=== PATIENT | male | born 1965 | race Caucasian/White ===

== ENCOUNTER → 2016-04-28 | Day surgery (SDC) | payer OTHER ==
[~2016-04-28] VITALS: Ht 172.7 cm; Wt 62.6 kg
[~2016-04-28] MED LIST: BUSPIRONE10 MG PO; CLARITIN-D 10 M1 T21 PO; FLEXERIL10 MG PO; HYDR25T PO; HYDROCODONE BIT1 T11 PO; IRON325 M1 PO; KROGER NIC21 MG/24 H T; LISINOPRIL20 MG PO; LISINOPRIL40 MG PO; MOTRIN800 MG PO; PREDNISONE20 MG PO; SERTRALINE HYDR25 MG PO; TESSALON PERLE100 M1 PO; TRAZODONE50 MG PO; ULTRAM50 MG PO; VITAMIN D400 I1 PO; ZITHROMAX Z PA250 MG PO
--- NOTE | ~2016-04-28 | O ---
[place], [place] OPERATIVE NOTE NAME: BARBARA COLLIER UNIT #: [id number] ROOM: DOCTOR: ESTER CHAVARRIA MD BIRTHDATE: [birth year] DOS: 04/28/2016 PREOPERATIVE DIAGNOSIS: Screening colonoscopy. POSTOPERATIVE DIAGNOSIS: Screening colonoscopy. Possible small polyps at 8, 20, and 130 cms, but prep is not good and I cannot see much, so I did not attempt to biopsy these because visibility is very low. PROCEDURE: Attempted colonoscopy. DESCRIPTION OF PROCEDURE: The patient brought in and placed in left lateral position. After MAC anesthesia, scope inserted through anus, initial attempt failed because there are lot of retroflexion, however, I was able to manipulate through the sigmoid colon. There are lot of smearing of the lens and prep was not good, I negotiated through and was able to go up to splenic side of the hepatic flexure, but beyond that I cannot see, there are a lot of stools there. Lens was smearing again and again instead of lot of attempt to clean it. Because of this, I have abandoned the procedure, I was afraid to do harm to the patient by not being able to see. The patient tolerated the procedure well and was sent to room. Ester Chavarria MD CM:OPRECORD:OPERATIVE NOTE [id number] ESTER CHAVARRIA MD 04/30/16 1056 interface
[2016-04-28 08:39] VITALS: BP 135/61
[2016-04-28 08:54] VITALS: BP 124/74
[2016-04-28 09:09] VITALS: BP 128/72
== END | disposition home or self-care (01) ==
LOC: SDC 04-22 09:30
DX: Z12.11 Encounter for screening for malignant neoplasm of colon (principal); K21.9 Gastro-esophageal reflux disease without esophagitis; J44.9 Chronic obstructive pulmonary disease, unspecified; I10 Essential (primary) hypertension; F11.10 Opioid abuse, uncomplicated; F17.210 Nicotine dependence, cigarettes, uncomplicated; Z83.3 Family history of diabetes mellitus; Z82.49 Family history of ischemic heart disease and other diseases of the circulatory system

== ENCOUNTER → 2016-05-12 | Day surgery (SDC) | payer OTHER ==
[~2016-05-12] VITALS: Ht 172.7 cm; Wt 60.8 kg
--- NOTE | ~2016-05-12 | O ---
[place], [place] OPERATIVE NOTE NAME: BARBARA COLLEIR UNIT #: [id number] ROOM: DOCTOR: ESTER CHAVARRIA MD BIRTHDATE: [birth year] DOS: 05/12/2016 ADDENDUM: The patient had a colonoscopy, which was screening in nature and there are no lesions found. The patient will be followed between 5-7 years for repeat colonoscopy. Ester Chavarria MD CM:OPRECORD:OPERATIVE NOTE 1332 15 ESTER CHAVARRIA MD 05/13/165 interface
--- NOTE | ~2016-05-12 | O ---
[place], [place] OPERATIVE NOTE [facility]IER [id number] UNIT #: [id number] ROOM: DOCTOR: ESTER CHAVARRIA MD BIRTHDATE: [birth year] DOS: 05/12/2016 PREOPERATIVE DIAGNOSIS: Screening colonoscopy. POSTOPERATIVE DIAGNOSIS: Screening colonoscopy. PROCEDURE DONE: Total colonoscopy and biopsy of the mucosal folds at 15 cm from anus. DESCRIPTION OF PROCEDURE: This is second time he is coming in for colonoscopy. Last time, he was not properly prepped and we could not complete the procedure at that time. After MAC anesthesia, he was placed in left lateral position. Through anus, scope inserted all the way up to the cecum. I do not see any tumor, mass, polyp, ulcer, colitis, diverticulitis, diverticulosis or any other pathology. He looks like he has a very, very redundant colon and skin folds were very thick and that may be part of his problem that he has constipation. One of the mucosal folds at distal sigmoid colon looked thickened and a biopsy was taken. Otherwise, exam is unremarkable except for internal hemorrhoid. The patient tolerated the procedure well and was sent to room. I did discuss the findings with the family. Ester Chavarria MD CM:OPRECORD:OPERATIVE NOTE 0922 [id number] ESTER CHAVARRIA MD 05/12/16 1149 interface
[2016-05-12 07:40] VITALS: BP 169/109
[2016-05-12 09:05] VITALS: BP 135/89
[2016-05-12 09:20] VITALS: BP 159/92
[2016-05-12 09:35] VITALS: BP 170/94
== END | disposition home or self-care (01) ==
LOC: SDC 05-08 12:30
DX: Z12.11 Encounter for screening for malignant neoplasm of colon (principal); K64.8 Other hemorrhoids; K63.89 Other specified diseases of intestine; K21.9 Gastro-esophageal reflux disease without esophagitis; I10 Essential (primary) hypertension; F14.10 Cocaine abuse, uncomplicated; J44.9 Chronic obstructive pulmonary disease, unspecified; Z87.891 Personal history of nicotine dependence; Z83.3 Family history of diabetes mellitus; Z82.49 Family history of ischemic heart disease and other diseases of the circulatory system

== ENCOUNTER 2017-07-21 13:46 | Emergency (ER) | payer OTHER ==
[~2017-07-21] VITALS: Ht 175.2 cm; Wt 67.1 kg
[2017-07-21] MEDS ORDERED: Motrin,Rufen800 MG PO (15:13)
== END 2017-07-21 15:16 | disposition home or self-care (01) ==
LOC: ED 13:46
DX: B34.9 Viral infection, unspecified (principal); F17.200 Nicotine dependence, unspecified, uncomplicated; F14.10 Cocaine abuse, uncomplicated; Z98.890 Other specified postprocedural states; Z79.899 Other long term (current) drug therapy

== ENCOUNTER 2017-10-23 09:29 | Emergency (ER) | payer OTHER ==
[~2017-10-23] VITALS: Wt 59.0 kg
[~2017-10-23 09:29] MED LIST changes: +Motrin,Rufen800 MG PO
[2017-10-23] MEDS ORDERED: CORTISPORIN SUS10 ML OT (09:37)
== END 2017-10-23 09:45 | disposition home or self-care (01) ==
LOC: ED 09:29
DX: H60.92 Unspecified otitis externa, left ear (principal); I10 Essential (primary) hypertension; F17.200 Nicotine dependence, unspecified, uncomplicated; Z79.899 Other long term (current) drug therapy

== ENCOUNTER 2018-02-09 15:17 | Emergency (ER) | payer BC ==
[~2018-02-09] VITALS: Ht 172.7 cm; Wt 63.5 kg
[~2018-02-09 15:17] MED LIST changes: +CORTISPORIN SUS10 ML OT
[2018-02-09] MEDS ORDERED: OMNICEF300 MG PO (16:29)
[2018-02-09] MEDS ORDERED: Motrin,Rufen800 MG PO (16:29)
== END 2018-02-09 16:41 | disposition home or self-care (01) ==
LOC: ED 15:17
DX: J01.90 Acute sinusitis, unspecified (principal); J44.9 Chronic obstructive pulmonary disease, unspecified; I10 Essential (primary) hypertension; Z79.899 Other long term (current) drug therapy

== ENCOUNTER 2018-02-16 10:52 | Emergency (ER) | payer BC ==
[~2018-02-16] VITALS: Ht 175.2 cm; Wt 63.0 kg
--- NOTE | ~2018-02-16 | EKG ---
[place], [place] ELECTROCARDIOGRAM REPORT NAME: BARBARA COLLIER UNIT #: [id number] ROOM: DOCTOR: EPIPHANY DRAFT REPORT BIRTHDATE: [birth year] [facility] Test Date: 2018-02-16 Test Time: 12:15:22 Pat Name: BARBARA COLLIER Department: Room: Gender: Rn Interventional: : 1965 Requested By: RICHELLE NOLAND DNP Order Number: [id number] Reading MD: Matthew Khanna MD Measurements Intervals [place] Rate: 75 P: 73 [place]: 123 QRS: 85 QRSD: 92 T: 69 QT: 402 QTc: 449 Interpretive Statements Sinus rhythm ST elev, probable normal early repol pattern No previous ECG available for comparison Electronically Signed On 02-16-2018 20:02:22 PDT by Matthew Khanna MD CM:EKGRPT:ELECTROCARDIOGRAM REPORT 1215 01 RICHELLE MONTEZ DRAFT REPORT RICHELLE NOLAND DNP
[~2018-02-16 10:52] MED LIST changes: +OMNICEF300 MG PO
[2018-02-16 12:31] LABS: BASO % 0.4 % (0.0-1.0); EOS # 0.1 10*3/uL (0.0-0.4); EOS % 0.9 % (1.0-4.0); HEMATOCRIT 41.8 % (42.0-52.0); HEMOGLOBIN 13.9 g/dl (14.0-18.0); LYMPH # 1.4 10*3/uL (1.3-4.4); LYMPH % 19.1 % (27.0-41.0); MEAN CELL VOLUME 82.6 fl (80.0-94.0); MEAN CORPUSCULAR HGB 27.5 pg (27.0-31.0); MEAN CORPUSCULAR HGB CONC 33.3 g/dl (33.0-37.0); MEAN PLATELET VOLUME 9.4 fl (9.6-12.3); MONO # 0.3 10*3/uL (0.1-1.0); MONO % 4.5 % (3.0-9.0); NEUT # 5.6 10*3/uL (2.3-7.9); NEUT % 74.8 % (47.0-73.0); PLATELET COUNT AUTOMATED 274 10*3/uL (130-400); RED BLOOD COUNT 5.06 10*6/uL (4.50-5.90); RED CELL DISTRI WIDTH 14.3 % (0-14.5); WHITE BLOOD COUNT 7.5 10*3/uL (4.8-10.8)
[2018-02-16 12:38] LABS: BILIRUBIN NEGATIVE (NEGATIVE); BLOOD NEGATIVE (NEGATIVE); CLARITY CLEAR (CLEAR); COLOR YELLOW (YELLOW); GLUCOSE NEGATIVE (NEGATIVE); KETONE TRACE (NEGATIVE); LEUKO ESTERASE NEGATIVE (NEGATIVE); NITRITE NEGATIVE (NEGATIVE); SPECIFIC GRAVITY 1.025 (1.005-1.030)
[2018-02-16 12:44] LABS: ACT PARTIAL THROMBO TIME 23.9 SECONDS (20.8-31.5)
[2018-02-16 12:46] LABS: ALBUMIN 3.3 gm/dl (3.1-4.5); ALKALINE PHOSPHATASE 124 U/L (45-117); BUN 15 mg/dl (7-24); CHLORIDE 105 mmol/L (98-107); CREATININE 1.02 mg/dL (0.70-1.30); LIPASE 148 U/L (73-393); POTASSIUM 3.6 mmol/L (3.5-5.1); SGOT/AST 82 IU/L (3-35); SGPT/ALT 224 U/L (12-78); SODIUM 138 mmol/L (136-145); TOTAL PROTEIN 7.5 gm/dL (6.4-8.2)
[2018-02-16 12:48] LABS: TROPONIN I < 0.015 ng/ml (<0.045)
[2018-02-16 12:49] LABS: BACTERIA 1+
[2018-02-16] MEDS ORDERED: AUGMENTIN 875875 MG PO (15:15)
== END 2018-02-16 15:27 | disposition home or self-care (01) ==
LOC: ED 10:52
PROVIDERS: Nurse Practitioner Family
DX: J06.9 Acute upper respiratory infection, unspecified (principal); R94.5 Abnormal results of liver function studies; H92.02 Otalgia, left ear; F17.200 Nicotine dependence, unspecified, uncomplicated; Z79.2 Long term (current) use of antibiotics; Z79.899 Other long term (current) drug therapy

== ENCOUNTER → 2018-02-17 | Outpatient (CLI) | payer BC ==
[~2018-02-17] MED LIST changes: +AUGMENTIN 875875 MG PO
== END | disposition home or self-care (01) ==
LOC: RESCLI 04:24
DX: Z13.9 Encounter for screening, unspecified (principal); I10 Essential (primary) hypertension; M72.2 Plantar fascial fibromatosis; J06.9 Acute upper respiratory infection, unspecified; M25.562 Pain in left knee; R74.8 Abnormal levels of other serum enzymes; F17.210 Nicotine dependence, cigarettes, uncomplicated

== ENCOUNTER → 2018-03-03 | Outpatient (CLI) | payer BC | END | disposition home or self-care (01) | LOC: RESCLI 07:50 | PROVIDERS: Internal Medicine | DX: Z13.9 Encounter for screening, unspecified (principal); I10 Essential (primary) hypertension; M25.562 Pain in left knee; R74.8 Abnormal levels of other serum enzymes; M72.2 Plantar fascial fibromatosis; Z79.899 Other long term (current) drug therapy ==

== ENCOUNTER → 2018-04-28 | Outpatient (CLI) | payer BC ==
[~2018-04-28] MED LIST changes: +ATARAX,VISTARIL50 MG PO; +ROPINIROLE HYD0.5 MG PO
[2018-04-28 15:54] LABS: BASO % 0.3 % (0.0-1.0); EOS # 0.1 10*3/uL (0.0-0.4); EOS % 0.9 % (1.0-4.0); HEMATOCRIT 46.6 % (42.0-52.0); LYMPH # 1.9 10*3/uL (1.3-4.4); LYMPH % 21.3 % (27.0-41.0); MEAN CELL VOLUME 81.3 fl (80.0-94.0); MEAN CORPUSCULAR HGB 26.2 pg (27.0-31.0); MEAN CORPUSCULAR HGB CONC 32.2 g/dl (33.0-37.0); MEAN PLATELET VOLUME 9.4 fl (9.6-12.3); MONO # 0.4 10*3/uL (0.1-1.0); MONO % 4.7 % (3.0-9.0); NEUT # 6.6 10*3/uL (2.3-7.9); NEUT % 72.5 % (47.0-73.0); PLATELET COUNT AUTOMATED 365 10*3/uL (130-400); RED BLOOD COUNT 5.73 10*6/uL (4.50-5.90); RED CELL DISTRI WIDTH 15.4 % (0-14.5)
[2018-04-28 16:07] LABS: ALBUMIN 3.6 gm/dl (3.1-4.5); ALKALINE PHOSPHATASE 110 U/L (45-117); BUN 19 mg/dl (7-24); CHLORIDE 102 mmol/L (98-107); CREATININE 0.93 mg/dL (0.70-1.30); POTASSIUM 4.5 mmol/L (3.5-5.1); SGOT/AST 17 IU/L (3-35); SGPT/ALT 44 U/L (12-78); SODIUM 136 mmol/L (136-145); TOTAL PROTEIN 8.1 gm/dL (6.4-8.2)
== END | disposition home or self-care (01) ==
LOC: RESCLI 14:23
PROVIDERS: Family Medicine
DX: I10 Essential (primary) hypertension (principal); F41.1 Generalized anxiety disorder; K52.9 Noninfective gastroenteritis and colitis, unspecified; R68.89 Other general symptoms and signs; R76.8 Other specified abnormal immunological findings in serum; F17.210 Nicotine dependence, cigarettes, uncomplicated; Z88.8 Allergy status to other drugs, medicaments and biological substances; Z79.899 Other long term (current) drug therapy

== ENCOUNTER 2018-05-31 13:14 | Inpatient (IN) | payer BC ==
[~2018-05-31] VITALS: Ht 175.2 cm; Wt 65.8 kg
[~2018-05-31 13:14] MED LIST changes: -ATARAX,VISTARIL50 MG PO; -ROPINIROLE HYD0.5 MG PO
[2018-05-31 13:15] VITALS: BP 160/108
[2018-05-31 13:41] LABS: BASO % 0.1 % (0.0-1.0); EOS # 0.3 10*3/uL (0.0-0.4); EOS % 3.6 % (1.0-4.0); HEMATOCRIT 36.9 % (42.0-52.0); HEMOGLOBIN 11.9 g/dl (14.0-18.0); LYMPH # 2.2 10*3/uL (1.3-4.4); LYMPH % 28.1 % (27.0-41.0); MEAN CELL VOLUME 84.2 fl (80.0-94.0); MEAN CORPUSCULAR HGB 27.2 pg (27.0-31.0); MEAN CORPUSCULAR HGB CONC 32.2 g/dl (33.0-37.0); MEAN PLATELET VOLUME 9.5 fl (9.6-12.3); MONO # 0.7 10*3/uL (0.1-1.0); MONO % 9.6 % (3.0-9.0); NEUT # 4.5 10*3/uL (2.3-7.9); NEUT % 58.2 % (47.0-73.0); PLATELET COUNT AUTOMATED 233 10*3/uL (130-400); RED BLOOD COUNT 4.38 10*6/uL (4.50-5.90); RED CELL DISTRI WIDTH 14.6 % (0-14.5); WHITE BLOOD COUNT 7.7 10*3/uL (4.8-10.8)
[2018-05-31 13:49] LABS: ALBUMIN 2.9 gm/dl (3.1-4.5); ALKALINE PHOSPHATASE 113 U/L (45-117); BUN 12 mg/dl (7-24); CHLORIDE 102 mmol/L (98-107); CREATININE 0.94 mg/dL (0.70-1.30); POTASSIUM 4.6 mmol/L (3.5-5.1); SGOT/AST 23 IU/L (3-35); SGPT/ALT 30 U/L (12-78); SODIUM 137 mmol/L (136-145); TOTAL PROTEIN 7.1 gm/dL (6.4-8.2)
[2018-05-31 13:55] LABS: ACETAMINOPHEN (TYLENOL) < 5.0 ug/ml (10-30); ETHYL ALCOHOL < 3.0 mg/dl (<3)
[2018-05-31 13:56] LABS: BILIRUBIN NEGATIVE (NEGATIVE); BLOOD NEGATIVE (NEGATIVE); CLARITY SL CLOUDY (CLEAR); COLOR YELLOW (YELLOW); GLUCOSE NEGATIVE (NEGATIVE); KETONE NEGATIVE (NEGATIVE); LEUKO ESTERASE TRACE (NEGATIVE); NITRITE NEGATIVE (NEGATIVE); SPECIFIC GRAVITY 1.015 (1.005-1.030); UROBILINOGEN 0.2 E.U./dl (0.2-1.0)
[2018-05-31 14:05] LABS: URINE AMPHETAMINES < 1000 (1000ng/ml); URINE BARBITURATES < 200 (200ng/ml); URINE BENZODIAZEPINES > 200 (200ng/ml); URINE CANNABINOIDS (THC) < 50 (50ng/ml); URINE COCAINE > 300 (300ng/ml); URINE METHADONE < 300 (300ng/ml); URINE OPIATES > 300 (300ng/ml)
[2018-05-31 14:07] LABS: BACTERIA 1+; EPITHELIAL CELLS 0-2
[2018-05-31 14:10] LABS: URINE PHENCYCLIDINE < 25 (25ng/ml)
--- NOTE | 2018-05-31 14:19 | NUR ---
PATIENT GIVEN LUNCH TRAY. HE IS JOKING WITH STAFF
--- NOTE | 2018-05-31 15:17 | NUR ---
psychiatric assessment: client presents after being sent her by [facility] to be seen for possible suicidal ideation, client explained to me that he said that he has thought about it before, but he is here because he wants to live and stop using drugs as they are ruining his life, he said he has a great job and he spends all of his money on drugs, he said that he started with crack and now its heroin. client is alert and oriented x4, he has no psychosis, he is engaging, pleasant, mood congruent, denies to me any suicidal thoughts or plans. he reports that he cant deal with waking up each day and trying to find drugs, he came here for help, he has future orientation and he is willing for treatment. this client is not a risk for self harm and can be released to go into [facility]. discussed with SURVEYOR.
[2018-05-31 16:00] VITALS: BP 127/73
--- NOTE | 2018-05-31 16:48 | NUR ---
52 year old MALE admitted to room # 427 for stabilization. Reports an addiction to IV HEROIN, BENZOS, AND COCAINE. last used 12 hours prior to admission. Compliant with admission procedure. Patient denies any anxiety, but is unable to sit still, taps toes to floor continuously, looks about room, unable to focus eyes on nurse during interview. See assessment forms for additional information about patient status.
--- NOTE | 2018-05-31 16:54 | NUR ---
PT DENIES USING ANY HOME MEDS.
--- NOTE | 2018-05-31 19:28 | NUR ---
PATIENT STATED HE JUST AWOKE, WANTED A MARCELINA INHALER, BUT PHARM IS CURRENTLY OUT OF STOCK, PLACED A MARCELINA PATCH AND GAVE REQUP FOR RESTLESS LEG. WILL MONITOR AND REASSESS.
[2018-05-31 20:00] VITALS: BP 151/88
--- NOTE | 2018-05-31 22:17 | NUR ---
24 HR chart check completed.
--- NOTE | 2018-05-31 23:30 | NUR ---
RESTING IN BED ON LEFT SIDE; RESPIRATIONS EASY & UNLABORED ON ROOM AIR. NO DISTRESS NOTED. CALL LIGHT WITHIN REACH.
[2018-06-01] VITALS: BP 210/108
--- NOTE | 2018-06-01 | NUR ---
CALLED DR. WOODS WITH PT'S ELEVATED BLOOD PRESSURE. STATED TO GIVEN PATIENT PRN MEDICATIONS.
--- NOTE | 2018-06-01 00:09 | NUR ---
MEDICATED WITH ATIVAN PO FOR ANXIETY & VISTARIL FOR ANXIETY. ALSO TOOK PATIENT NEW [facility]. ALSO ASKED PATIENT ABOUT HIS HOME MEDICATIONS DUE TO HIS MED REC STATING THAT HE TAKES SEVERAL BLOOD PRESSURE MEDICATIONS. PT. STATED THAT HE DOES NOT TAKE ANY BLOOD PRESSURE MEDICATIONS & STATED THAT ONE TIME WHEN HE WAS AT THE DOCTOR HIS BP WAS 80/50. HE STATED "SO WHY SHOULD I TAKE BLOOD PRESSURE MEDICATIONS?" PT. RESISTANT TO ANY TEACHING; ARGUMENTATIVE. CALL LIGHT REMAINS WITHIN REACH.
[2018-06-01 03:40] VITALS: BP 164/94
--- NOTE | 2018-06-01 03:40 | NUR ---
MEDICATED WITH HYDRALAZINE PER DR. JAQUEZ'S ORDER. PT. COOPERATIVE & TOOK PO MEDICATION. CALL LIGHT REMAINS WITHIN REACH.
[2018-06-01 08:00] VITALS: BP 204/120
--- NOTE | 2018-06-01 09:46 | NUR ---
REQUIP AND VISTARIL GIVEN FOR C/O RESTLESS LEGS AND ANXIETY.
--- NOTE | 2018-06-01 10:50 | NUR ---
VISTARIL AND REQUIP HELPING PER PT. WILL CONTINUE TO MONITOR.
[2018-06-01 12:00] VITALS: BP 156/99
[2018-06-01 16:00] VITALS: BP 111/78
--- NOTE | 2018-06-01 17:36 | NUR ---
ATIVAN GIVEN FOR C/O ANXIETY. ROBAXIN GIVEN FOR C/O MUSCLE ACHES. WILL MONITOR.
--- NOTE | 2018-06-01 19:55 | NUR ---
VISTARIL AND BENTYL GIVEN PER ORDER FOR ANXIETY AND CRAMPING. SEE MAR.
[2018-06-01 20:00] VITALS: BP 137/89
--- NOTE | 2018-06-01 20:50 | NUR ---
VISTARIL AND BENTYL EFFECTIVE FOR ANXIETY AND STOMACH CRAMPING PER PT.
--- NOTE | 2018-06-01 23:14 | NUR ---
PT. AWAKEND FOR VITAL SIGNS C/O RESTLESSNESS OF LEGS AND CRAMPING OF MUSCLES. REQUIP AND ROBAXIN GIVEN PER ORDER FOR WITHDRAWL SYMPTOMS.
[2018-06-02] VITALS: BP 120/79
--- NOTE | 2018-06-02 | NUR ---
REQUIP AND ROBAXIN EFFECTIVE FOR RESTLESSNESS OF LEGS AND MUSCLE CRAMPING.
--- NOTE | 2018-06-02 01:28 | NUR ---
TRAZADONE GIVEN PER ORDER FOR INSOMNIA. SEE MAR.
--- NOTE | 2018-06-02 02:20 | NUR ---
TRAZADONE EFFECTIVE PT. SLEEPINIG.
--- NOTE | 2018-06-02 04:54 | NUR ---
24 HR chart check completed.
[2018-06-02 06:25] VITALS: BP 130/90
[2018-06-02 08:00] VITALS: BP 143/99
--- NOTE | 2018-06-02 09:08 | NUR ---
GIVEN REQUIP, ROBAXIN AND VISTARIL FOR C/O ANXIETY, LEG CRAMPS AND RESTLESS LEGS. WILL CONT TO MONITOR. CALL LIGHT IN REACH.
--- NOTE | 2018-06-02 10:08 | NUR ---
REQUIP, ROBAXIN AND VISTARIL EFF. WILL CONT TO MONITOR. CALL LIGHT IN REACH.
--- NOTE | 2018-06-02 11:07 | NUR ---
PATIENT HAS BEEN REFERRED BY HIS EMPLOYER TO A PRIVATE PRACTICE IN [place], [place] FOR OUTPATIENT COUNSELING. PATIENT HAS ALSO BEEN SCHEDULED WITH [facility] FOR VIVITROL. HIS APPOINTMENT IS SCHEDULED FOR MONDAY, JUNE 04, 2018 AT 9:30AM. PATIENT AGREES AND UNDERSTANDS HIS AFTERCARE PLAN. MCKENZIE GARRIDO MS BAKER PAINT
--- NOTE | 2018-06-02 14:18 | NUR ---
C/O ANXIETY, RESTLESSNESS AND LEG CRAMPS. GIVEN MOTRIN AND ATIVAN. WILL CONT TO MONITOR. CALL LIGHT IN REACH.
--- NOTE | 2018-06-02 15:18 | NUR ---
MOTRIN AND ATIVAN EFF. PT RESTING QUIETLY. WILL CONT TO MONITOR. CALL LIGHT IN REACH.
--- NOTE | 2018-06-02 15:50 | NUR ---
DR YIP NOTIFIED OF BP. HE STATED TO MAKE SURE IT GETS CHECKED PRIOR TO ADMINISTERING CLONIDINE.
[2018-06-02 16:00] VITALS: BP 98/64
--- NOTE | 2018-06-02 19:37 | NUR ---
C/O MUSCLE ACHING AND ANXIETY. VISTARIL AND ROBAXIN GIVEN PER ORDER FOR WITHDRAWL SYMPTOMS.
[2018-06-02 20:00] VITALS: BP 96/52
--- NOTE | 2018-06-02 20:30 | NUR ---
VISTARIL EFFECTIVE FOR ANXIETY PER PT. SAID IT HELPED AND ROBAXIN HELPED WITH MUSCLE ACHES PER PT.
[2018-06-02 21:25] VITALS: BP 119/65
--- NOTE | 2018-06-02 21:35 | NUR ---
TRAZADONE AND REQUIP GIVEN PER ORDER FOR INSOMNIA AND RESTLESSNESS OF LEGS. SEE MAR.
--- NOTE | 2018-06-02 21:43 | NUR ---
CHECKED BP 119/65 PT. REFUSED CATAPRESS. WILL CONT. TO MONITOR BP
--- NOTE | 2018-06-02 22:30 | NUR ---
TRAZADONE AND REQUIP EFFECTIVE FOR RESTLESSNESS AND INSOMNIA. PT. SLEEPING.
--- NOTE | 2018-06-02 22:49 | NUR ---
24 HR chart check completed.
[2018-06-03] VITALS: BP 100/75
--- NOTE | 2018-06-03 03:25 | NUR ---
SLEEPING NOT DISTRESS NOTED.
[2018-06-03 06:28] LABS: BASO % 0.3 % (0.0-1.0); EOS # 0.3 10*3/uL (0.0-0.4); EOS % 3.4 % (1.0-4.0); HEMATOCRIT 40.1 % (42.0-52.0); HEMOGLOBIN 12.4 g/dl (14.0-18.0); LYMPH # 2.6 10*3/uL (1.3-4.4); LYMPH % 28.2 % (27.0-41.0); MEAN CELL VOLUME 85.9 fl (80.0-94.0); MEAN CORPUSCULAR HGB 26.6 pg (27.0-31.0); MEAN CORPUSCULAR HGB CONC 30.9 g/dl (33.0-37.0); MEAN PLATELET VOLUME 9.6 fl (9.6-12.3); MONO # 0.7 10*3/uL (0.1-1.0); MONO % 7.1 % (3.0-9.0); NEUT # 5.6 10*3/uL (2.3-7.9); NEUT % 60.4 % (47.0-73.0); PLATELET COUNT AUTOMATED 259 10*3/uL (130-400); RED BLOOD COUNT 4.67 10*6/uL (4.50-5.90); RED CELL DISTRI WIDTH 14.9 % (0-14.5); WHITE BLOOD COUNT 9.2 10*3/uL (4.8-10.8)
[2018-06-03 07:09] LABS: CREATININE 1.21 mg/dL (0.70-1.30)
[2018-06-03 08:00] VITALS: BP 133/88
[2018-06-03 09:51] VITALS: BP 136/82
[2018-06-03] MEDS ORDERED: ROPINIROLE HYD0.5 MG PO (11:04)
[2018-06-03] MEDS ORDERED: LISINOPRIL20 MG PO (11:04)
[2018-06-03] MEDS ORDERED: ATARAX,VISTARIL50 MG PO (11:04)
--- NOTE | 2018-06-03 11:55 | NUR ---
Discharge instructions reviewed with patient/family. Patient receptive and verbalizes understanding. Follow-up care arranged. Written instructions given to patient/family. Patient was educated on new medications and to follow up with pcp one week post discharge and also [facility]. Patient ambulated from unit with all personal belongings accounted for. NEERAJ MACIAS
== END 2018-06-03 11:55 | disposition home or self-care (01) | DRG 896 ==
LOC: ED 13:14 → 4E 15:23 → EDHOLD 15:23 → 4E 15:43
PROVIDERS: Nurse Practitioner Family; ADMIT Internal Medicine
DX: F11.23 Opioid dependence with withdrawal (principal); E43 Unspecified severe protein-calorie malnutrition; F32.9 Major depressive disorder, single episode, unspecified; D64.9 Anemia, unspecified; F14.90 Cocaine use, unspecified, uncomplicated; G47.00 Insomnia, unspecified; I10 Essential (primary) hypertension; Z83.3 Family history of diabetes mellitus; Z79.899 Other long term (current) drug therapy; Z82.49 Family history of ischemic heart disease and other diseases of the circulatory system; Z82.0 Family history of epilepsy and other diseases of the nervous system; Z68.21 Body mass index [BMI] 21.0-21.9, adult

== ENCOUNTER 2018-11-08 21:54 | Inpatient (IN) | payer MEDICAID ==
[~2018-11-08] VITALS: Ht 177.8 cm; Wt 62.7 kg
--- NOTE | ~2018-11-08 | CON ---
[place], [place] REPORT OF CONSULTATION NAME: BARBARA COLLIER UNIT #: [id number] ROOM: 515 DOCTOR: LEAH PLASCENCIAELOISA BIRTHDATE: [birth year] DOS: 11/10/2018 GASTROENDOSCOPIC REPORT HISTORY OF PRESENT ILLNESS: A 53-year-old patient who has presented with chief complaint of black tarry stool, not feeling well. The patient underwent a screening test in the Emergency Room and his H and H was 11 and 35, although he was complaining periodically of stool with red blood in it. He has been carrying a history of hepatitis C, recreational drugs, heavy alcohol up to 2 years ago and since then he has a sober state. Comprehensive metabolic panel, electrolyte balance, troponin was 0.067 and troponin again remains positive repeatedly. Cardiology is investigating and managing his nonspecific T abnormalities, lateral lead has been noticed. CBC differential remains no definitive compromise in H and H. Myocardial perfusion greater than 60% ejection fraction, left ventricle. PAST MEDICAL HISTORY: Hypertension, depression, anemia. SOCIAL HISTORY: Smoker and stopped alcohol consumption, cocaine user by history. FAMILY HISTORY: Noncontributory. ALLERGIES: No known medications. MEDICATIONS: List reviewed. REVIEW OF SYSTEMS: HEENT: Denies double vision, blurred vision. RESPIRATORY: Denies acute shortness of breath. CARDIOVASCULAR: Denies acute chest pain. DIGESTIVE SYSTEM: Blood in the stool and guaiac positivity. PHYSICAL EXAMINATION: VITAL SIGNS: Stable, nondistressed patient. HEENT: Head normocephalic, nontraumatic. Mouth and buccal mucosa benign. NECK: Supple, no thyromegaly, no cervical lymphadenopathy. CHEST: Symmetric anatomy, equal expansion. No wheeze, no rhonchi. HEART: Normal sinus rhythm, no gallop, no murmur. ABDOMEN: Soft. No hepato-organomegaly. Bowel sounds present. EXTREMITIES: No cyanosis, no pedal edema. NEUROLOGIC: Alert, oriented to time, place, person. IMPRESSION: Hepatitis C, blood in the stool, borderline anemia, hypertension, elevation of troponin. Ruling out non-ST elevation myocardial infarction, T-wave changes, normal ejection fraction, left ventricle greater than 60%. Otherwise, as dictated in past medical and surgical history. PLAN AND DISCUSSION: Due to the positivity and elevation of troponin, may be more conservative means in investigating this patient's GI tract is recommended [place], [place] REPORT OF CONSULTATION NAME: BARBARA COLLIER UNIT #: [id number] ROOM: [facility] DOCTOR: LEAH PLASCENCIA,ELOISA BIRTHDATE: [birth year] due to the fact that if troponin positive, he is in the hospital, he has hepatitis C and multi issues. If he remains as inpatient, we would rather to do his EGD and colonoscopy Thursday while inpatient. ELOISA LYNN MD CM:CONSTR:REPORT OF CONSULTATION 1618 11/11/18 0303 interface
--- NOTE | ~2018-11-08 | PR ---
[place], [place] PROGRESS NOTE NAME: BARBARA COLLIER UNIT #: [id number] ROOM: 515 DOCTOR: JER PLASCENCIA,TAVO BIRTHDATE: [birth year] DOS: 11/10/2018 CARDIOLOGY FOLLOWUP VISIT NOTE REASON FOR VISIT: Elevated troponin and hypertension. SUBJECTIVE: The patient denies any chest pain. No shortness of breath, no palpitations. No dizziness. No PND, no orthopnea. No nausea. No headache, no neurologic symptoms. No genitourinary symptoms. No bladder or bowel symptoms. REVIEW OF SYSTEMS: Review of 10 systems negative except as mentioned above. PHYSICAL EXAMINATION: VITAL SIGNS: Blood pressure 130/70, pulse 78, respiratory rate 16, weight 62.7 kilos. RHYTHM STRIPS: The patient is in sinus rhythm. GENERAL: Alert, comfortable, in no acute distress. HEAD AND NECK: Pupils are round and equal. No jaundice. Tongue was moist. Pharynx clear. NECK: Supple. No distended neck veins, no carotid bruit. CHEST: Symmetrical, nontender. LUNGS: Clear to auscultation bilaterally. HEART: Regular rhythm. No S3. ABDOMEN: Benign, nontender. Bowel sounds normal. EXTREMITIES: Showed no edema. Distal pulses palpable. SKIN: Warm and dry. No cyanosis, no clubbing. RECTAL: Deferred. GENITOURINARY: Deferred. NEUROLOGIC: The patient is alert with no focal neurologic deficit. MEDICATIONS AND LABORATORY DATA: Reviewed. IMPRESSION: 1. Borderline elevation of troponins. The patient has no chest pain. EKG nonischemic. Cannot rule out recent non-ST elevation myocardial infarction. 2. Significant fatigue per patient. 3. Hypertension. 4. Tobacco use. 5. History of drug use. 6. Mild anemia. 7. Hepatitis C. 8. History of noncompliance with medications due to financial issues. RECOMMENDATIONS: 1. Blood pressure and heart rates are stable. 2. Continue current medication. 3. Lexiscan stress test today. 4. If the stress test is unremarkable, Cardiology will sign off. 5. A 2D echo is unremarkable and the results were discussed with the patient. [place], [place] PROGRESS NOTE NAME: BARBARA COLLIER UNIT #: [id number] ROOM: [facility] DOCTOR: TAVO RANDLE MD BIRTHDATE: [birth year] TAVO RANDLE MD CM:PNTRANS 1218 57 TAVO RANDLE MD 11/10/18 2358 interface
--- NOTE | ~2018-11-08 | O ---
[place], [place] OPERATIVE NOTE NAME: BARBARA COLLIER UNIT #: [id number] ROOM: 515 DOCTOR: LEAH PLASCENCIA,[facility]LENEFIRSTHEALTH BIRTHDATE: [birth year] DOS: 11/12/2018 HISTORY OF PRESENT ILLNESS: This patient is a 53-year-old patient who has presented with chief complaint of epigastric abdominal pain, GI bleed, undergoing investigation. PROCEDURE: Today's procedure part of investigation is panendoscopy and colonoscopy. PREMEDICATION: Propofol. SCOPE: Olympus forward-viewing gastroscope Q10 video. REPORT: After putting the patient in left lateral position and application of lubricant to the scope, the scope was introduced. Thereafter, under direct visualization, advanced through the length of esophagus without difficulty. Gastric pouch was entered. Evidence of gastritis was seen. Antrum biopsy was obtained. Duodenal bulb, second and third part within normal limit. The patient extubated, tolerated the procedure well. IMPRESSION: Gastritis, status post biopsy, small hiatal hernia. No esophageal varicosity. PLAN AND DISCUSSION: Omeprazole 20 mg 1 every day. We will proceed with colonoscopy. GASTROENDOSCOPIC REPORT INDICATION: The patient undergoing investigation for suspected GI bleed. PROCEDURE: Today's procedure part of investigation is colonoscopy plus polypectomy x 3. PREMEDICATION: Propofol. SCOPE: Olympus forward-viewing colonoscope 10L video. REPORT: After putting the patient in left lateral position and application of lubricant to the scope, the scope was introduced. Thereafter, under direct visualization, was advanced to the base of cecum. Withdrawn back to the hepatic flexure. The sessile polypoid lesion was removed with snare. Another polypoid lesion was eradicated at rectal pouch. The patient was gradually extubated and tolerated the procedure well. IMPRESSION: Rectal pouch polyp, status post snare polypectomy, sessile colonic polyp hepatic flexure, status post snare polypectomy x 2. PLAN AND DISCUSSION: High fiber diet. ACTIVITY: Ad minda. [place], [place] OPERATIVE NOTE NAME: BARBARA COLLIER UNIT #: [id number] ROOM: 515 DOCTOR: LEAH PLASCENCIA,[facility] BIRTHDATE: [birth year] FOLLOWUP: As outpatient. Thank you very much indeed. ELOISA LYNN MD CM:[place]:OPERATIVE NOTE 1537 1604 ELOISA LYNN MD 11/12/18 1605 interface
--- NOTE | ~2018-11-08 | EKG ---
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: : 1965 Requested By: FOSTER QUICK Order Number: [id number] Reading MD: Derrell Gonzales Measurements Intervals [place] Rate: 86 P: 150 GA: 128 QRS: 147 QRSD: 97 T: 146 QT: 388 QTc: 464 Interpretive Statements Sinus or ectopic atrial rhythm Probable left atrial enlargement Probable lateral infarct, age indeterminate Lead(s) II were not used for morphology analysis Compared to ECG 02/16/2018 12:15:22 Ectopic atrial rhythm now present Myocardial infarct finding now present Sinus rhythm no longer present ST (T wave) deviation no longer present Electronically Signed On 11-09-2018 7:49:26 PDT by Derrell Gonzales CM:EKGRPT:ELECTROCARDIOGRAM REPORT [id number] 0749 FOSTER MONTEZ DRAFT REPORT FOSTER QUICK
--- NOTE | ~2018-11-08 | EKG ---
[place], [place] ELECTROCARDIOGRAM REPORT NAME: BARBARA COLLIER UNIT #: [id number] ROOM: [facility] DOCTOR: MELIDA DRAFT REPORT BIRTHDATE: [birth year] [facility] Test Date: 2018-11-09 Test Time: 01:22:27 Pat Name: BARBARA COLLIER Department: Room: [facility] Gender: M Design Leader: Berta Webster : 1965 Requested By: FOSTER QUICK Order Number: [id number] Reading MD: Derrell Gonzales Measurements Intervals [place] Rate: 76 P: 75 MN: 127 QRS: 82 QRSD: 93 T: 68 QT: 396 QTc: 446 Interpretive Statements Sinus rhythm Baseline wander in lead(s) III,aVF Compared to ECG 02/16/2018 12:15:22 ST (T wave) deviation no longer present Electronically Signed On 11-09-2018 7:49:21 PDT by Derrell Gonzales CM:EKGRPT:ELECTROCARDIOGRAM REPORT [id number] 0749 FOSTER MONTEZ DRAFT REPORT FOSTER QUICK
--- NOTE | ~2018-11-08 | EKG ---
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 : 1965 Requested By: TAI REYNOSO Order Number: [id number] Reading MD: Derrell Gonzales Measurements Intervals [place] Rate: 82 P: 71 ME: 120 QRS: 81 QRSD: 91 T: 79 QT: 391 QTc: 457 Interpretive Statements Sinus rhythm Nonspecific T abnormalities, lateral leads ST elev, probable normal early repol pattern Baseline wander in lead(s) III,aVL Compared to ECG 02/16/2018 12:15:22 T-wave abnormality now present ST (T wave) deviation still present Electronically Signed On 11-09-2018 7:49:11 PDT by Derrell Gonzales CM:EKGRPT:ELECTROCARDIOGRAM REPORT [id number] 0749 TAI FOLEY DRAFT REPORT TAI REYNOSO DO
--- NOTE | ~2018-11-08 | CON ---
[place], [place] REPORT OF CONSULTATION NAME: BARBARA COLLIER UNIT #: [id number] ROOM: 515 DOCTOR: TAVO RANDLE MD BIRTHDATE: [birth year] DOS: 11/09/2018 REASON FOR CONSULTATION: Elevated troponin. HISTORY OF PRESENT ILLNESS: The patient is a 53-year-old gentleman with history of hypertension, anemia, chronic tobacco use and drug use, who presents to the hospital for "fatigue." He has been having increasingly fatigued for the past week, but per family, the patient has been having fatigue for over a year. He also noticed recently some dark tarry stools. He was admitted to the hospital and noted to have slightly elevated cardiac troponin, hence Cardiology was consulted, but he denies any exertional chest pains or palpitation but did have occasional shortness of breath on exertion, but no PND, no orthopnea, no palpitations, no syncope. Did have occasional dizziness. He was recently diagnosed with hepatitis C and a history of hypertension, but currently not taking medications since he could not afford them. Again, he denies any exertional chest pains or palpitations. REVIEW OF SYSTEMS: Review of 10 systems negative, except as mentioned above. PAST MEDICAL HISTORY: 1. Hypertension. 2. Anemia. 3. Depression. 4. Malnutrition. SOCIAL HISTORY: The patient does smoke, does use cocaine and illicit drugs, does drink alcohol socially. FAMILY HISTORY: Mother at age 73 from diabetes and dementia. Father in an accident at age of 53. ALLERGIES: No known drug allergies. HOME MEDICATIONS: Reviewed. PHYSICAL EXAMINATION: VITAL SIGNS: Blood pressure 167/102, pulse 78, respiratory rate was 18, weight 62.9 kilos. BMI 19.8. GENERAL: Alert, comfortable, in no acute distress. HEAD AND NECK: Supple, no distended neck veins, no carotid bruit. Tongue was moist and pharynx clear. NECK: Supple, no distended neck veins, no carotid bruit. CHEST: Symmetrical, nontender. LUNGS: Clear to auscultation bilaterally. HEART: Regular rhythm, no S3, no palpable thrills. ABDOMEN: Benign, nontender. Bowel sounds normal. EXTREMITIES: Showed no edema. Distal pulses palpable. SKIN: Warm and dry. No cyanosis, no clubbing. RECTAL: Deferred. GENITOURINARY: Deferred. [place], [place] REPORT OF CONSULTATION NAME: BARBARA COLLIER UNIT #: [id number] ROOM: [facility] DOCTOR: JER PLASCENCIA,TAVO BIRTHDATE: [birth year] NEUROLOGIC: The patient is alert, with no focal neurologic deficit. REVIEW OF DIAGNOSTIC TESTS: EKG, labs, and imaging studies reviewed. EKG showed sinus rhythm with nonspecific ST changes, no acute ischemia. CBC and chemistry reviewed. Hemoglobin 11.7. Cardiac troponins are 0.067, 0.065, 0.083, 0.066. Vitamin D levels are 20.1. IMPRESSION: 1. Borderline elevation of troponin, nonspecific. The patient was chest pain free and EKG had no acute ischemia. 2. Fatigue. 3. Hypertension. 4. Mild anemia. 5. Noncompliance with medications. 6. History of tobacco use. 7. History of alcohol use. 8. Hepatitis C. 9. History of drug use. RECOMMENDATIONS: 1. He denies any chest pain. EKG showed no acute ischemic changes. 2. The patient did not receive any aspirin or heparin due to his questionable GI bleed. With his fatigue, mild anemia and also recent black tarry stools, GI was consulted. 3. No beta blockers due to his cocaine use. 4. A 2D echo was done and pending. I will review the 2D echo. 5. I would recommend stress test tomorrow. The patient opted for a pharmacologic stress test due to his fatigue. 6. The patient was started on amlodipine 5 mg for blood pressure and adjust the medications as needed. 7. The patient currently lives with his brother. 8. Compliance with medications and followup visits discussed. 9. Risk factor modification was also discussed. 10. The patient can be transferred from the cardiac standpoint to telemetry floor. 11. Further cardiac recommendation based on his echo and stress test. 12. If the stress test is unremarkable, Cardiology will sign off, and if the stress test is abnormal, then I would discuss with him regarding cardiac catheterization. 13. The above recommendation was discussed with the patient and his family member who is at bedside and all questions were answered. [place], [place] REPORT OF CONSULTATION NAME: BARBARA COLLIER UNIT #: [id number] ROOM: [facility] DOCTOR: TAVO RANDLE MD BIRTHDATE: [birth year] TAVO RANDLE MD CM:CONSTR:REPORT OF CONSULTATION 1359 11/10/18 0010 interface
--- NOTE | ~2018-11-08 | ST ---
[place], [place] EXERCISE STRESS TEST REPORT [facility]: [id number] UNIT #: [id number] ROOM: [facility] DOCTOR: JER PLASCENCIA,TAVO BIRTHDATE: [birth year] DOS: 11/10/2018 LEXISCAN STRESS TEST REASON FOR TEST: Elevated troponin and hypertension. PHYSICAL EXAMINATION: NECK: Supple. LUNGS: Clear anteriorly. HEART: Regular rhythm. PROTOCOL: Lexiscan protocol. Maximum heart rate of 109. Peak blood pressure 124/70. SYMPTOMS: The patient is chest pain free. EKG: Resting EKG shows sinus rhythm. Stress EKG showed no ischemia, no arrhythmias. CONCLUSION: Clinically, the patient is chest pain free. EKG nonischemic. POST-STRESS COMPLICATIONS: None. The patient received a total of 0.4 mg of Lexiscan. TAVO RANDLE MD CM:STRESS:EXERCISE STRESS TEST REPORT [id number] 0000 TAVO RANDLE MD
[~2018-11-08 21:54] MED LIST changes: +ATARAX,VISTARIL50 MG PO; +ROPINIROLE HYD0.5 MG PO
[2018-11-08 21:55] VITALS: BP 191/117
[2018-11-08 22:06] VITALS: BP 172/98
[2018-11-08 22:38] LABS: BASO # 0.1 10*3/uL (0.0-0.1); BASO % 0.6 % (0.0-1.0); EOS # 0.5 10*3/uL (0.0-0.4); EOS % 4.3 % (1.0-4.0); HEMATOCRIT 35.5 % (42.0-52.0); HEMOGLOBIN 11.2 g/dl (14.0-18.0); LYMPH % 28.4 % (27.0-41.0); MEAN CELL VOLUME 85.7 fl (80.0-94.0); MEAN CORPUSCULAR HGB 27.1 pg (27.0-31.0); MEAN CORPUSCULAR HGB CONC 31.5 g/dl (33.0-37.0); MEAN PLATELET VOLUME 9.3 fl (9.6-12.3); MONO # 0.7 10*3/uL (0.1-1.0); MONO % 6.3 % (3.0-9.0); NEUT # 6.4 10*3/uL (2.3-7.9); NEUT % 60.1 % (47.0-73.0); PLATELET COUNT AUTOMATED 226 10*3/uL (130-400); RED BLOOD COUNT 4.14 10*6/uL (4.50-5.90); RED CELL DISTRI WIDTH 16.3 % (0-14.5); WHITE BLOOD COUNT 10.6 10*3/uL (4.8-10.8)
[2018-11-08 22:56] LABS: ALBUMIN 3.1 gm/dl (3.1-4.5); ALKALINE PHOSPHATASE 129 U/L (45-117); BUN 17 mg/dl (7-24); CHLORIDE 109 mmol/L (98-107); CREATININE 0.99 mg/dL (0.70-1.30); POTASSIUM 3.9 mmol/L (3.5-5.1); SGOT/AST 12 IU/L (3-35); SGPT/ALT 21 U/L (12-78); SODIUM 143 mmol/L (136-145); TOTAL PROTEIN 6.9 gm/dL (6.4-8.2)
[2018-11-08 22:57] LABS: TROPONIN I 0.067 ng/ml (<0.045)
--- NOTE | 2018-11-08 22:57 | NUR ---
CRITICAL TROPONIN 0.067, DR REYNOSO AWARE
[2018-11-09] VITALS (9 sets, daily range): BP systolic 144–175; BP diastolic 88–111
[2018-11-09 00:24] LABS: ACT PARTIAL THROMBO TIME 23.6 SECONDS (20.0-32.1); INTERNATIONAL NORM RATIO 0.9 (2.0-3.5)
--- NOTE | 2018-11-09 00:36 | NUR ---
PATIENT REQUESTING TO STAY IN CLOTHING UNTIL HE REACHES THE FLOOR. PATIENT DENIES ANY WOUNDS AT THIS TIME.
--- NOTE | 2018-11-09 01:12 | NUR ---
A 53, admitted to ICCU, under the services of MARY Cadet DO with a diagnosis of SINUS, FATIGUE,GI BLEED, AND ELEVATED TROPONINS. Chief complaint is tired, weak, high blood pressure, black stools.. Patient arrived via stretcher from ER. Monitor applied. Initial assessment completed. Vital signs taken and recorded. MARY CADET DO notified of admission to the unit. Orders received. See assessment for past medical history, medications and allergies. Patient and/or family oriented to unit. [facility]U visitation policy reviewed. Clothing/patient valuable form completed. JUDIT PAK
--- NOTE | 2018-11-09 01:42 | NUR ---
DR. JOLLY BEEPED THROUGH ANSWERING SERVICE, AWAITING RETURN CALL.
--- NOTE | 2018-11-09 01:57 | NUR ---
DR. JOLLY RETURNED CALL, NO FURTHER ORDERS RECEIVED. ULYSSES AREVALO RN
[2018-11-09 04:46] LABS: BASO % 0.4 % (0.0-1.0); EOS # 0.5 10*3/uL (0.0-0.4); EOS % 4.3 % (1.0-4.0); HEMATOCRIT 37.8 % (42.0-52.0); HEMOGLOBIN 11.7 g/dl (14.0-18.0); LYMPH # 2.8 10*3/uL (1.3-4.4); MEAN CELL VOLUME 85.9 fl (80.0-94.0); MEAN CORPUSCULAR HGB 26.6 pg (27.0-31.0); MONO # 0.7 10*3/uL (0.1-1.0); MONO % 6.1 % (3.0-9.0); NEUT # 6.8 10*3/uL (2.3-7.9); NEUT % 62.7 % (47.0-73.0); PLATELET COUNT AUTOMATED 231 10*3/uL (130-400); RED CELL DISTRI WIDTH 16.3 % (0-14.5); WHITE BLOOD COUNT 10.8 10*3/uL (4.8-10.8)
--- NOTE | 2018-11-09 05:07 | NUR ---
DR. QUICK NOTIFIED OF ELEV TROPONIN OF 0.083.
[2018-11-09 05:15] LABS: INTERNATIONAL NORM RATIO 0.9 (2.0-3.5)
[2018-11-09 05:16] LABS: BUN 18 mg/dl (7-24); CHLORIDE 111 mmol/L (98-107); CHOLESTEROL 207 mg/dL (<200); HDL CHOLESTEROL 65 mg/dl (40-60); LDL CHOLESTEROL 126 mg/dL (9-159); PHOSPHOROUS 3.8 mg/dL (2.5-4.9); POTASSIUM 4.2 mmol/L (3.5-5.1); SGOT/AST 10 IU/L (3-35); SGPT/ALT 19 U/L (12-78); SODIUM 144 mmol/L (136-145); TOTAL PROTEIN 6.9 gm/dL (6.4-8.2); TRIGLYCERIDES 78 mg/dl (<150); VLDL CHOLESTEROL 16 mg/dL (6-40)
[2018-11-09 05:21] LABS: ALKALINE PHOSPHATASE 118 U/L (45-117); THYROID STIM HORMONE (HS) 0.835 uIU/ml (0.358-4.75)
--- NOTE | 2018-11-09 06:44 | NUR ---
DR. LYNN NOTIFIED OF CONSULT, NO FURTHER ORDERS RECEIVED.
[2018-11-09 06:49] LABS: VITAMIN D, 25-HYDROXY 20.8 ng/mL (30-100)
--- NOTE | 2018-11-09 07:37 | NUR ---
DR YIP MADE AWARE OF PT'S ELEVATED BP OF 167/102 AND ALSO PT REQUESTING NICOTINE PATCH.
--- NOTE | 2018-11-09 08:21 | NUR ---
DR MORALES MADE AWARE OF PT'S TROPONIN LEVEL OF [id number]
--- NOTE | 2018-11-09 09:53 | NUR ---
BP 175/111. SAI ALVAREZ ORDERED.
--- NOTE | 2018-11-09 14:30 | NUR ---
Recreation Program Coordinator in to talk to patient. Patient states lives at home alone. There are 0 steps in the home. Physician: resident clinic Pharmacy: [facility] Home health services: none Patient's level of ADLs: INDEPENDENT Patient has working utilities: yes DME: none Follow-up physician's appointment after d/c: will be made by the hospitalist nurse director upon discharge Does patient want to access PORTAL?: no Discharge plan discussed with patient. He lives in a trailer on his brother's property. He is independent in his ADLs and ambulation. Discussed home health care services and he denies any home needs at this time. When medically stable he will be discharged to home. His brother will transport on discharge. BERNIE BRADFORD
--- NOTE | 2018-11-09 15:20 | NUR ---
PT TRANSFERED TO ROOM 515-2 AT THIS TIME VIA BED. REPORT GIVEN TO AMIRA BARRAZA.
--- NOTE | 2018-11-09 16:06 | NUR ---
SMOKE SMELL NOTED IN [place] AFTER PT STATED HE "WANTS A CIGARETTE." INFORMED PT THIS IS A NO SMOKING CAMPUS AND THAT HE ALREADY HAS A NIOTINE PATCH ON. LAUGHED AND SAID OK. RN, ALIDA Ratliff ENETERED ROOM AFTER SMELLING SMOKE AND PT STATED HE WAS A NON SMOKER. INFORMED ASSIGNED RN OF SITUATION. I WENT DOWN TO THE PTs ROOM, ASKED IF HE HAD SMOKED IN THE BATHROOM, PT STATED NO. ASKED IF HE HAS CIGAREETES IN HIS BELOMGINGS, STATED YES. I ASKED TO LOCK UP HIS CIGARETTES, PT WAS OK AND COOPERATIVE WITH THIS. CIGARETTES IN [place] AND LOCKED AWAY. AND THAI MADE AWARE OF SITUATION. SPOKE WITH PT REGARDING MATTER.
[2018-11-10] VITALS: BP 130/76
[2018-11-10 06:37] LABS: BASO % 0.4 % (0.0-1.0); EOS # 0.5 10*3/uL (0.0-0.4); EOS % 4.8 % (1.0-4.0); HEMATOCRIT 39.5 % (42.0-52.0); HEMOGLOBIN 12.4 g/dl (14.0-18.0); LYMPH % 20.8 % (27.0-41.0); MEAN CELL VOLUME 86.1 fl (80.0-94.0); MEAN CORPUSCULAR HGB CONC 31.4 g/dl (33.0-37.0); MEAN PLATELET VOLUME 10.2 fl (9.6-12.3); MONO # 0.6 10*3/uL (0.1-1.0); NEUT # 6.5 10*3/uL (2.3-7.9); NEUT % 67.5 % (47.0-73.0); PLATELET COUNT AUTOMATED 231 10*3/uL (130-400); RED BLOOD COUNT 4.59 10*6/uL (4.50-5.90); RED CELL DISTRI WIDTH 16.2 % (0-14.5); WHITE BLOOD COUNT 9.7 10*3/uL (4.8-10.8)
[2018-11-10 07:04] LABS: BUN 19 mg/dl (7-24); CHLORIDE 109 mmol/L (98-107); CREATININE 0.87 mg/dL (0.70-1.30); POTASSIUM 4.3 mmol/L (3.5-5.1); SODIUM 142 mmol/L (136-145)
[2018-11-10 08:00] VITALS: BP 148/90
--- NOTE | 2018-11-10 09:30 | NUR ---
PT TO STRESS TEST VIA WC.
--- NOTE | 2018-11-10 10:37 | NUR ---
INFORMED SIGNED CONSENT OBTAINED FOR LEXISCAN STRESS TEST WITH DR RANDLE. RESTING EKG NSR HR 88 BP[ 100/60. PULSE OX 96% LUNGS CLEAR. PT COMPLETED ONE MINUTE OF A LEXISCAN PROTOCOL WITH PT RECEIVING LEXISCAN 0.4MG IV OVER 10 SECONDS. NO ARRHYTHYMIAS OR ST CHAGNES SEEN. PT C/O FEELING BREATHLESS AND NAUSEATED. LAST RECOVERY HR OF 90 BP 124/70. PT IN STABLE CONDITION, AWAITING NUCLEAR IMAGES.
[2018-11-10 12:00] VITALS: BP 145/90
--- NOTE | 2018-11-10 15:20 | NUR ---
B12 INJECTION GIVEN PER ORDER.
[2018-11-10 16:00] VITALS: BP 169/94
--- NOTE | 2018-11-10 16:17 | NUR ---
DR LYNN IN TO SEE PT. NEW ORDERS RECEIVED.
--- NOTE | 2018-11-10 18:42 | NUR ---
PT INFORMED OF EGD/COLO FOR THURSDAY.
--- NOTE | 2018-11-10 18:57 | NUR ---
DR LYNN CHANGED TIME FOR DULCOLAX TAB.
[2018-11-10 20:00] VITALS: BP 133/89
[2018-11-11] VITALS: BP 124/78
[2018-11-11 08:00] VITALS: BP 118/84
--- NOTE | 2018-11-11 08:00 | NUR ---
Patient resting quietly with no c/o discomfort. Respirations easy and regular. Vital signs stable. No overt distress. VALERIO BOYCE
--- NOTE | 2018-11-11 08:00 | NUR ---
Fork Lift Technician in to see patient. No new needs or request at this time. He denies any home needs. When medically stable he will be discharged to home.
[2018-11-11 12:00] VITALS: BP 148/98
--- NOTE | 2018-11-11 15:32 | NUR ---
CRISTÓBAL TO D/C RN CLINICAL TRIALS PER .
[2018-11-11 16:00] VITALS: BP 142/80
--- NOTE | 2018-11-11 17:11 | NUR ---
COLO PREP INITIATED AT THIS TIME.
[2018-11-11 20:00] VITALS: BP 124/78
[2018-11-12] VITALS (8 sets, daily range): BP systolic 92–165; BP diastolic 63–96
--- NOTE | 2018-11-12 06:50 | NUR ---
PATIENT HAD FLEETS ENEMA AND X1 TAP WATER ENEMA. STILL YELLOW WITH A LITTLE SEDIMENT. STATED HE WOULD LIKE A BREAK AND HE WOULD DO ANOTHER ONE A LITTLE LATER IN THE MORNING BEFORE HE GOES DOWN.
--- NOTE | 2018-11-12 11:51 | NUR ---
Occupational therapy referral received and screen completed. Patient reports he is independent in ADLs and functional mobility. No further OT is indicated at this time.Discharge OT referral. Thank you. Loi Sotelo OTR/Ashvin
--- NOTE | 2018-11-12 12:23 | NUR ---
Screen completed this date with pt reporting and demonstrating independent function at this time. Thank you for this referral. Liana Cook, PT
--- NOTE | 2018-11-12 14:49 | NUR ---
PATIENT IN SURGERY.
--- NOTE | 2018-11-12 22:00 | NUR ---
Restoril given as per prn order for inability to sleep. See emar. Reinforced use of call light.
[2018-11-13] VITALS: BP 130/80
--- NOTE | 2018-11-13 | NUR ---
PATIENT C/O PAIN AND LEAKING AT IV SITE. REQUESTED IT TO BE REMOVED. DOES NOT WANT IT RESTARTED D/T NOT RECEIVING ANY MEDS VIA IV.
--- NOTE | 2018-11-13 01:31 | NUR ---
24 HR chart check completed.
[2018-11-13 06:29] LABS: BASO % 0.4 % (0.0-1.0); EOS # 0.4 10*3/uL (0.0-0.4); EOS % 4.7 % (1.0-4.0); HEMATOCRIT 38.5 % (42.0-52.0); LYMPH # 1.9 10*3/uL (1.3-4.4); LYMPH % 21.1 % (27.0-41.0); MEAN CELL VOLUME 85.7 fl (80.0-94.0); MEAN CORPUSCULAR HGB 26.7 pg (27.0-31.0); MEAN CORPUSCULAR HGB CONC 31.2 g/dl (33.0-37.0); MEAN PLATELET VOLUME 9.8 fl (9.6-12.3); MONO # 0.6 10*3/uL (0.1-1.0); MONO % 7.1 % (3.0-9.0); NEUT # 5.9 10*3/uL (2.3-7.9); NEUT % 66.3 % (47.0-73.0); PLATELET COUNT AUTOMATED 237 10*3/uL (130-400); RED BLOOD COUNT 4.49 10*6/uL (4.50-5.90); RED CELL DISTRI WIDTH 16.2 % (0-14.5); WHITE BLOOD COUNT 8.9 10*3/uL (4.8-10.8)
[2018-11-13 06:58] LABS: ALKALINE PHOSPHATASE 122 U/L (45-117); BUN 25 mg/dl (7-24); CHLORIDE 107 mmol/L (98-107); CREATININE 0.91 mg/dL (0.70-1.30); PHOSPHOROUS 4.1 mg/dL (2.5-4.9); POTASSIUM 4.6 mmol/L (3.5-5.1); SGOT/AST 16 IU/L (3-35); SGPT/ALT 29 U/L (12-78); SODIUM 139 mmol/L (136-145)
[2018-11-13 08:00] VITALS: BP 134/83
[2018-11-13] MEDS ORDERED: OMEPRAZOLE D/R20 MG PO (09:02)
[2018-11-13] MEDS ORDERED: NORVASC5 MG PO (09:07)
[2018-11-13] MEDS ORDERED: PRINIVIL10 MG PO (09:07)
[2018-11-13] MEDS ORDERED: VITAMIN D5000 UNI1 PO (09:10)
[2018-11-13] MEDS ORDERED: NICODERM CQ1 EAC2 T (11:14)
--- NOTE | 2018-11-13 11:26 | NUR ---
PATIENT DISCHARGED TO HOME WITH BELONGINGS.
== END 2018-11-13 11:26 | disposition home or self-care (01) | DRG 378 ==
LOC: ED 21:54 → 5E 23:58 → ICCU 23:58 → EDHOLD 23:58 → ICCU 11-09 00:58 → 5E 11-09 14:26
PROVIDERS: Internal Medicine; Internal Medicine Gastroenterology; Student in an Organized Health Care Education/Training Program; ADMIT Family Medicine
PROC: 4A02XM4 Measurement of Cardiac Total Activity, External Approach (ICD-10-PCS; principal; 2018-11-10)
PROC: 3E073KZ Introduction of Other Diagnostic Substance into Coronary Artery, Percutaneous Approach (ICD-10-PCS; 2018-11-10)
PROC: 0DB78ZX Excision of Stomach, Pylorus, Via Natural or Artificial Opening Endoscopic, Diagnostic (ICD-10-PCS; 2018-11-12)
PROC: 0DBP8ZZ Excision of Rectum, Via Natural or Artificial Opening Endoscopic (ICD-10-PCS; 2018-11-12)
PROC: 0DBL8ZZ Excision of Transverse Colon, Via Natural or Artificial Opening Endoscopic (ICD-10-PCS; 2018-11-12)
DX: K29.71 Gastritis, unspecified, with bleeding (principal); I16.1 Hypertensive emergency; E44.1 Mild protein-calorie malnutrition; E87.8 Other disorders of electrolyte and fluid balance, not elsewhere classified; R73.9 Hyperglycemia, unspecified; R06.82 Tachypnea, not elsewhere classified; I10 Essential (primary) hypertension; D64.9 Anemia, unspecified; F17.210 Nicotine dependence, cigarettes, uncomplicated; F14.10 Cocaine abuse, uncomplicated; F11.10 Opioid abuse, uncomplicated; G56.00 Carpal tunnel syndrome, unspecified upper limb; F32.9 Major depressive disorder, single episode, unspecified; B19.20 Unspecified viral hepatitis C without hepatic coma; K44.9 Diaphragmatic hernia without obstruction or gangrene; K62.1 Rectal polyp; K63.5 Polyp of colon; E53.8 Deficiency of other specified B group vitamins; E55.9 Vitamin D deficiency, unspecified; K59.00 Constipation, unspecified; Z79.899 Other long term (current) drug therapy; Z82.49 Family history of ischemic heart disease and other diseases of the circulatory system; Z91.14 Patient's other noncompliance with medication regimen; Z71.6 Tobacco abuse counseling; Z83.3 Family history of diabetes mellitus; Z81.8 Family history of other mental and behavioral disorders

== ENCOUNTER → 2019-01-04 | Outpatient (CLI) | payer OTHER ==
[~2019-01-04] MED LIST changes: +NICODERM CQ1 EAC2 T; +NORVASC5 MG PO; +OMEPRAZOLE D/R20 MG PO; +PRINIVIL10 MG PO; +VITAMIN D5000 UNI1 PO
== END | disposition home or self-care (01) ==
LOC: RESCLI 01:23
DX: R53.83 Other fatigue (principal); E53.8 Deficiency of other specified B group vitamins; K21.9 Gastro-esophageal reflux disease without esophagitis; I10 Essential (primary) hypertension; E56.9 Vitamin deficiency, unspecified; B19.20 Unspecified viral hepatitis C without hepatic coma; K63.5 Polyp of colon; F32.9 Major depressive disorder, single episode, unspecified; Z79.899 Other long term (current) drug therapy

== ENCOUNTER → 2019-02-09 | Outpatient (CLI) | payer OTHER | END | disposition home or self-care (01) | LOC: RESCLI 00:12 | PROVIDERS: Student in an Organized Health Care Education/Training Program | DX: E53.8 Deficiency of other specified B group vitamins (principal); I10 Essential (primary) hypertension; E56.9 Vitamin deficiency, unspecified; R53.83 Other fatigue; B17.10 Acute hepatitis C without hepatic coma; R25.2 Cramp and spasm; K63.5 Polyp of colon; F17.200 Nicotine dependence, unspecified, uncomplicated; Z79.899 Other long term (current) drug therapy ==

== ENCOUNTER → 2019-04-21 | Outpatient (CLI) | payer OTHER ==
[2019-04-21 11:21] LABS: VITAMIN D, 25-HYDROXY 38.3 ng/mL (30-100)
== END | disposition home or self-care (01) ==
LOC: RESCLI 00:58
PROVIDERS: Student in an Organized Health Care Education/Training Program
DX: I10 Essential (primary) hypertension (principal); E53.8 Deficiency of other specified B group vitamins; E56.9 Vitamin deficiency, unspecified; K63.5 Polyp of colon; Z79.899 Other long term (current) drug therapy

== ENCOUNTER → 2019-06-30 | Outpatient (CLI) | payer OTHER | END | disposition home or self-care (01) | LOC: RESCLI 01:04 | DX: I10 Essential (primary) hypertension (principal); E56.9 Vitamin deficiency, unspecified; K21.9 Gastro-esophageal reflux disease without esophagitis; M25.561 Pain in right knee; G89.29 Other chronic pain; F32.9 Major depressive disorder, single episode, unspecified; Z79.899 Other long term (current) drug therapy ==

== ENCOUNTER → 2020-01-12 | Outpatient (CLI) | payer OTHER | END | disposition home or self-care (01) | LOC: RESCLI 01:26 | PROVIDERS: ATTEND Internal Medicine Nephrology | DX: I10 Essential (primary) hypertension (principal); M25.561 Pain in right knee; E56.9 Vitamin deficiency, unspecified; E78.5 Hyperlipidemia, unspecified; M79.661 Pain in right lower leg; M79.10 Myalgia, unspecified site; B19.20 Unspecified viral hepatitis C without hepatic coma; S61.209A Unspecified open wound of unspecified finger without damage to nail, initial encounter; Z12.11 Encounter for screening for malignant neoplasm of colon; Z79.899 Other long term (current) drug therapy; Z98.890 Other specified postprocedural states; X58.XXXA Exposure to other specified factors, initial encounter; Y93.89 Activity, other specified; Y92.89 Other specified places as the place of occurrence of the external cause; Y99.8 Other external cause status ==

== ENCOUNTER → 2020-02-17 | Outpatient (CLI) | payer OTHER ==
[2020-02-17 10:06] LABS: BASO % 0.2 % (0.0-1.0); EOS # 0.5 10*3/uL (0.0-0.4); EOS % 4.9 % (1.0-4.0); HEMATOCRIT 37.4 % (42.0-52.0); LYMPH # 2.3 10*3/uL (1.3-4.4); LYMPH % 23.4 % (27.0-41.0); MEAN CELL VOLUME 84.6 fl (80.0-94.0); MEAN CORPUSCULAR HGB 26.7 pg (27.0-31.0); MEAN CORPUSCULAR HGB CONC 31.6 g/dl (33.0-37.0); MEAN PLATELET VOLUME 9.1 fl (9.6-12.3); MONO # 0.6 10*3/uL (0.1-1.0); MONO % 6.2 % (3.0-9.0); NEUT # 6.5 10*3/uL (2.3-7.9); PLATELET COUNT AUTOMATED 286 10*3/uL (130-400); RED BLOOD COUNT 4.42 10*6/uL (4.50-5.90); RED CELL DISTRI WIDTH 15.3 % (0-14.5)
[2020-02-17 10:35] LABS: ALBUMIN 3.4 gm/dl (3.1-4.5); ALKALINE PHOSPHATASE 108 U/L (45-117); BUN 23 mg/dl (7-24); CHLORIDE 103 mmol/L (98-107); CREATININE 1.07 mg/dL (0.70-1.30); POTASSIUM 4.4 mmol/L (3.5-5.1); SGOT/AST 16 IU/L (3-35); SGPT/ALT 26 U/L (12-78); SODIUM 137 mmol/L (136-145); TOTAL PROTEIN 7.5 gm/dL (6.4-8.2)
[2020-02-17 11:11] LABS: VITAMIN D, 25-HYDROXY 56.4 ng/mL (30-100)
== END | disposition home or self-care (01) ==
LOC: LAB 09:24
PROVIDERS: ATTEND Student in an Organized Health Care Education/Training Program
DX: I10 Essential (primary) hypertension (principal); E78.5 Hyperlipidemia, unspecified; Z79.899 Other long term (current) drug therapy

== ENCOUNTER → 2020-04-17 | Outpatient (CLI) | payer OTHER | END | disposition home or self-care (01) | LOC: COVID19 08:25 | PROVIDERS: ATTEND Student in an Organized Health Care Education/Training Program | DX: Z20.828 Contact with and (suspected) exposure to other viral communicable diseases (principal) ==

== ENCOUNTER 2020-12-24 21:17 | Emergency (ER) | payer OTHER ==
[~2020-12-24] VITALS: Ht 175.2 cm; Wt 68.0 kg
[2020-12-25] MEDS ORDERED: MEDROL DOSEPAK4 MG PO (00:16)
[2020-12-25] MEDS ORDERED: CYCLOBENZAPRINE5 M3 PO (00:16)
== END 2020-12-25 00:27 | disposition home or self-care (01) ==
LOC: ED 21:17
DX: M54.31 Sciatica, right side (principal)

== ENCOUNTER → 2021-03-18 | Outpatient (CLI) | payer OTHER ==
[~2021-03-18] MED LIST changes: +AMLODIPINE BESY10 MG PO; +CYCLOBENZAPRINE5 M3 PO; +DULOXETINE HCL60 MG PO; +LISINOPRIL10 M1 PO; +MEDROL DOSEPAK4 MG PO; +VIBRAMYCIN100 MG PO
== END | disposition home or self-care (01) ==
LOC: MRI 13:58
PROVIDERS: ATTEND Family Medicine
DX: M22.41 Chondromalacia patellae, right knee (principal); R93.6 Abnormal findings on diagnostic imaging of limbs; M75.41 Impingement syndrome of right shoulder; M75.121 Complete rotator cuff tear or rupture of right shoulder, not specified as traumatic

== ENCOUNTER 2021-03-28 14:26 | Emergency (ER) | payer OTHER ==
[~2021-03-28] VITALS: Wt 68.0 kg
[~2021-03-28 14:26] MED LIST changes: -AMLODIPINE BESY10 MG PO; -DULOXETINE HCL60 MG PO; -LISINOPRIL10 M1 PO; -VIBRAMYCIN100 MG PO
[2021-03-28] MEDS ORDERED: AMLODIPINE BESY10 MG PO (14:41)
[2021-03-28] MEDS ORDERED: DULOXETINE HCL60 MG PO (14:41)
[2021-03-28] MEDS ORDERED: LISINOPRIL10 M1 PO (14:41)
[2021-03-28 15:48] LABS: BASO % 0.3 % (0.0-1.0); EOS # 0.1 10*3/uL (0.0-0.4); EOS % 1.9 % (1.0-4.0); LYMPH # 1.7 10*3/uL (1.3-4.4); LYMPH % 23.5 % (27.0-41.0); MEAN CELL VOLUME 81.9 fl (80.0-94.0); MEAN CORPUSCULAR HGB 26.1 pg (27.0-31.0); MEAN CORPUSCULAR HGB CONC 31.8 g/dl (33.0-37.0); MONO # 0.6 10*3/uL (0.1-1.0); MONO % 8.1 % (3.0-9.0); NEUT # 4.7 10*3/uL (2.3-7.9); NEUT % 65.8 % (47.0-73.0); PLATELET COUNT AUTOMATED 321 10*3/uL (130-400); RED BLOOD COUNT 4.03 10*6/uL (4.50-5.90); RED CELL DISTRI WIDTH 16.2 % (0-14.5); WHITE BLOOD COUNT 7.2 10*3/uL (4.8-10.8)
[2021-03-28 16:05] LABS: ALBUMIN 2.7 gm/dl (3.1-4.5); ALKALINE PHOSPHATASE 108 U/L (45-117); BUN 15 mg/dl (7-24); CHLORIDE 102 mmol/L (98-107); CREATININE 0.87 mg/dL (0.70-1.30); POTASSIUM 4.4 mmol/L (3.5-5.1); SGOT/AST 12 IU/L (3-35); SODIUM 135 mmol/L (136-145); TOTAL PROTEIN 7.3 gm/dL (6.4-8.2)
[2021-03-28 16:11] LABS: SGPT/ALT 10 U/L (12-78)
[2021-03-28] MEDS ORDERED: VIBRAMYCIN100 MG PO (16:13)
== END 2021-03-28 18:00 | disposition home or self-care (01) ==
LOC: ED 14:26
PROVIDERS: Physician Assistant
DX: L02.413 Cutaneous abscess of right upper limb (principal); Z79.899 Other long term (current) drug therapy

== ENCOUNTER 2021-08-02 16:59 | Inpatient (IN) | payer OTHER ==
[~2021-08-02] VITALS: Ht 173 cm; Wt 67.7 kg
[~2021-08-02 16:59] MED LIST changes: +AMLODIPINE BESY10 MG PO; +DULOXETINE HCL60 MG PO; +LISINOPRIL10 M1 PO; +VIBRAMYCIN100 MG PO
[2021-08-02 17:09] VITALS: BP 183/95
[2021-08-02] MEDS ORDERED: DRIZALMA SPRINK60 MG PO (17:27)
[2021-08-02] MEDS ORDERED: NORVASC10 MG PO (17:27)
[2021-08-02] MEDS ORDERED: LISINOPRIL10 M1 PO (17:27)
[2021-08-02 17:48] LABS: BASO % 0.2 % (0.0-1.0); EOS # 0.3 10*3/uL (0.0-0.4); EOS % 2.7 % (1.0-4.0); HEMATOCRIT 32.9 % (42.0-52.0); LYMPH # 1.6 10*3/uL (1.3-4.4); LYMPH % 13.8 % (27.0-41.0); MEAN CORPUSCULAR HGB 24.6 pg (27.0-31.0); MEAN CORPUSCULAR HGB CONC 31.9 g/dl (33.0-37.0); MEAN PLATELET VOLUME 9.2 fl (9.6-12.3); MONO # 0.8 10*3/uL (0.1-1.0); MONO % 7.3 % (3.0-9.0); NEUT # 8.7 10*3/uL (2.3-7.9); NEUT % 75.8 % (47.0-73.0); PLATELET COUNT AUTOMATED 263 10*3/uL (130-400); RED BLOOD COUNT 4.27 10*6/uL (4.50-5.90); RED CELL DISTRI WIDTH 15.6 % (0-14.5); WHITE BLOOD COUNT 11.4 10*3/uL (4.8-10.8)
[2021-08-02 18:04] LABS: ALKALINE PHOSPHATASE 107 U/L (45-117); BUN 16 mg/dl (7-24); CHLORIDE 102 mmol/L (98-107); CREATININE 0.84 mg/dL (0.70-1.30); POTASSIUM 4.1 mmol/L (3.5-5.1); SGOT/AST 11 IU/L (3-35); SGPT/ALT 14 U/L (12-78); SODIUM 134 mmol/L (136-145)
[2021-08-02 19:15] VITALS: BP 159/86
[2021-08-02 22:20] VITALS: BP 143/72
[2021-08-02 22:30] VITALS: BP 170/91
[2021-08-03 05:29] LABS: BILIRUBIN Negative (Negative); BLOOD Negative (Negative); CLARITY Clear (Clear); COLOR Yellow (Yellow); GLUCOSE Negative (Negative); KETONE Negative (Negative); LEUKO ESTERASE Negative (Negative); NITRITE Negative (Negative); PH 5.5 (4.5-8.0); SPECIFIC GRAVITY 1.015 (1.001-1.030); UROBILINOGEN 0.2 E.U./dl (0.0-1.0)
[2021-08-03 06:23] LABS: BASO % 0.1 % (0.0-1.0); EOS # 0.2 10*3/uL (0.0-0.4); EOS % 1.6 % (1.0-4.0); HEMATOCRIT 34.6 % (42.0-52.0); LYMPH # 1.3 10*3/uL (1.3-4.4); LYMPH % 8.9 % (27.0-41.0); MEAN CELL VOLUME 78.1 fl (80.0-94.0); MEAN CORPUSCULAR HGB 25.3 pg (27.0-31.0); MEAN CORPUSCULAR HGB CONC 32.4 g/dl (33.0-37.0); MEAN PLATELET VOLUME 9.8 fl (9.6-12.3); MONO # 0.9 10*3/uL (0.1-1.0); MONO % 6.1 % (3.0-9.0); NEUT # 11.6 10*3/uL (2.3-7.9); NEUT % 82.7 % (47.0-73.0); PLATELET COUNT AUTOMATED 280 10*3/uL (130-400); RED BLOOD COUNT 4.43 10*6/uL (4.50-5.90); RED CELL DISTRI WIDTH 15.4 % (0-14.5)
[2021-08-03 06:27] LABS: ACT PARTIAL THROMBO TIME 30.5 SECONDS (20.0-32.1)
[2021-08-03 06:35] LABS: BUN 13 mg/dl (7-24); CHLORIDE 104 mmol/L (98-107); CHOLESTEROL 141 mg/dL (<200); CREATININE 0.71 mg/dL (0.70-1.30); POTASSIUM 4.3 mmol/L (3.5-5.1); SGOT/AST 7 IU/L (3-35); SGPT/ALT 12 U/L (12-78); SODIUM 132 mmol/L (136-145); TRIGLYCERIDES 84 mg/dl (<150)
[2021-08-03 06:40] LABS: ALKALINE PHOSPHATASE 97 U/L (45-117); FREE T4 1.42 ng/dl (0.76-1.46); LDL CHOLESTEROL 87 mg/dL (9-159); THYROID STIM HORMONE (HS) 0.523 uIU/ml (0.358-4.75)
[2021-08-03 07:28] LABS: EPITHELIAL CELLS 0-2; WBC 0-2 wbc/hpf (0-5)
[2021-08-03 08:00] VITALS: BP 127/71
[2021-08-03 08:12] LABS: VITAMIN D, 25-HYDROXY 27.5 ng/mL (30-100)
[2021-08-03 08:30] VITALS: BP 124/80
[2021-08-03 12:00] VITALS: BP 139/90
[2021-08-03 16:00] VITALS: BP 155/90
[2021-08-03 20:00] VITALS: BP 160/60
[2021-08-04] VITALS: BP 158/91
[2021-08-04 05:52] LABS: BUN 9 mg/dl (7-24); CHLORIDE 106 mmol/L (98-107); CREATININE 0.69 mg/dL (0.70-1.30); POTASSIUM 3.5 mmol/L (3.5-5.1); SODIUM 137 mmol/L (136-145)
[2021-08-04 06:22] LABS: BASO % 0.2 % (0.0-1.0); EOS # 0.2 10*3/uL (0.0-0.4); EOS % 2.4 % (1.0-4.0); HEMATOCRIT 35.8 % (42.0-52.0); LYMPH # 1.7 10*3/uL (1.3-4.4); LYMPH % 17.3 % (27.0-41.0); MEAN CELL VOLUME 75.7 fl (80.0-94.0); MEAN CORPUSCULAR HGB 24.7 pg (27.0-31.0); MEAN CORPUSCULAR HGB CONC 32.7 g/dl (33.0-37.0); MEAN PLATELET VOLUME 9.5 fl (9.6-12.3); MONO # 0.5 10*3/uL (0.1-1.0); MONO % 5.2 % (3.0-9.0); NEUT # 7.1 10*3/uL (2.3-7.9); NEUT % 74.6 % (47.0-73.0); PLATELET COUNT AUTOMATED 320 10*3/uL (130-400); RED BLOOD COUNT 4.73 10*6/uL (4.50-5.90); RED CELL DISTRI WIDTH 15.1 % (0-14.5); WHITE BLOOD COUNT 9.6 10*3/uL (4.8-10.8)
[2021-08-04 08:00] VITALS: BP 146/70
[2021-08-04 12:00] VITALS: BP 143/71
== END 2021-08-04 16:46 | disposition left against medical advice (07) | DRG 720 ==
LOC: ED 16:59 → EDHOLD 21:39 → 5E 22:22
PROVIDERS: Family Medicine; Internal Medicine; ADMIT Internal Medicine; ATTEND Internal Medicine
PROC: 0X9F0ZZ Drainage of Left Lower Arm, Open Approach (ICD-10-PCS; principal; 2021-08-02)
DX: A41.9 Sepsis, unspecified organism (principal); L02.414 Cutaneous abscess of left upper limb; E44.0 Moderate protein-calorie malnutrition; E87.1 Hypo-osmolality and hyponatremia; G56.00 Carpal tunnel syndrome, unspecified upper limb; D53.9 Nutritional anemia, unspecified; L03.114 Cellulitis of left upper limb; F32.9 Major depressive disorder, single episode, unspecified; I10 Essential (primary) hypertension; D50.9 Iron deficiency anemia, unspecified; D72.825 Bandemia; R73.9 Hyperglycemia, unspecified; F11.10 Opioid abuse, uncomplicated; F17.210 Nicotine dependence, cigarettes, uncomplicated; E53.8 Deficiency of other specified B group vitamins; E55.9 Vitamin D deficiency, unspecified; Z71.6 Tobacco abuse counseling; Z68.22 Body mass index [BMI] 22.0-22.9, adult; Z81.8 Family history of other mental and behavioral disorders; Z86.010 Personal history of colon polyps; Z98.890 Other specified postprocedural states; Z53.29 Procedure and treatment not carried out because of patient's decision for other reasons

== ENCOUNTER 2021-12-29 08:37 | Emergency (ER) | payer OTHER ==
[~2021-12-29] VITALS: Ht 175.2 cm; Wt 65.8 kg
[~2021-12-29 08:37] MED LIST changes: +DRIZALMA SPRINK60 MG PO; +NORVASC10 MG PO
[2021-12-29 10:01] LABS: BASO % 0.1 % (0.0-1.0); EOS # 0.2 10*3/uL (0.0-0.4); HEMATOCRIT 40.4 % (42.0-52.0); LYMPH # 1.6 10*3/uL (1.3-4.4); LYMPH % 15.7 % (27.0-41.0); MEAN CELL VOLUME 74.4 fl (80.0-94.0); MEAN CORPUSCULAR HGB 24.1 pg (27.0-31.0); MEAN CORPUSCULAR HGB CONC 32.4 g/dl (33.0-37.0); MEAN PLATELET VOLUME 9.1 fl (9.6-12.3); MONO # 0.8 10*3/uL (0.1-1.0); MONO % 7.6 % (3.0-9.0); NEUT # 7.5 10*3/uL (2.3-7.9); NEUT % 74.3 % (47.0-73.0); PLATELET COUNT AUTOMATED 267 10*3/uL (130-400); RED BLOOD COUNT 5.43 10*6/uL (4.50-5.90); RED CELL DISTRI WIDTH 18.1 % (0-14.5); WHITE BLOOD COUNT 10.1 10*3/uL (4.8-10.8)
[2021-12-29 10:19] LABS: ALKALINE PHOSPHATASE 124 U/L (45-117); BUN 20 mg/dl (7-24); CHLORIDE 100 mmol/L (98-107); CREATININE 0.96 mg/dL (0.70-1.30); LIPASE 103 U/L (73-393); POTASSIUM 3.9 mmol/L (3.5-5.1); SGOT/AST 11 IU/L (3-35); SGPT/ALT 23 U/L (12-78); SODIUM 132 mmol/L (136-145); TOTAL PROTEIN 8.4 gm/dL (6.4-8.2)
[2021-12-29] MEDS ORDERED: NAPROXEN250 MG PO (12:27)
[2021-12-29] MEDS ORDERED: TYLENOL325 M1 PO (12:27)
[2021-12-29] MEDS ORDERED: CYCLOBENZAPRINE10 MG PO (12:27)
[2021-12-29] MEDS ORDERED: MIRALAX POWDER17 G1 PO (12:27)
== END 2021-12-29 12:36 | disposition home or self-care (01) ==
LOC: ED 08:37
PROVIDERS: Emergency Medicine
DX: M54.9 Dorsalgia, unspecified (principal); I10 Essential (primary) hypertension; Z87.891 Personal history of nicotine dependence

== ENCOUNTER 2022-02-24 22:04 | Emergency (ER) | payer OTHER ==
[~2022-02-24] VITALS: Wt 68.0 kg
[~2022-02-24 22:04] MED LIST changes: +CYCLOBENZAPRINE10 MG PO; +MIRALAX POWDER17 G1 PO; +NAPROXEN250 MG PO; +TYLENOL325 M1 PO
[2022-02-24] MEDS ORDERED: POLYTRIM 1000010 M1 OPH (23:04)
== END 2022-02-24 23:10 | disposition home or self-care (01) ==
LOC: ED 22:04
DX: T15.02XA Foreign body in cornea, left eye, initial encounter (principal); W22.8XXA Striking against or struck by other objects, initial encounter; Y93.89 Activity, other specified; Y92.89 Other specified places as the place of occurrence of the external cause; Y99.8 Other external cause status

== ENCOUNTER → 2022-12-31 | Outpatient (CLI) | payer OTHER ==
[~2022-12-31] MED LIST changes: +POLYTRIM 1000010 M1 OPH
[2022-12-31 11:45] LABS: BASO % 0.2 % (0.0-1.0); EOS # 0.4 10*3/uL (0.0-0.4); EOS % 4.6 % (1.0-4.0); HEMATOCRIT 35.4 % (42.0-52.0); LYMPH # 1.9 10*3/uL (1.3-4.4); LYMPH % 22.1 % (27.0-41.0); MEAN CELL VOLUME 78.5 fl (80.0-94.0); MEAN CORPUSCULAR HGB 24.8 pg (27.0-31.0); MEAN CORPUSCULAR HGB CONC 31.6 g/dl (33.0-37.0); MEAN PLATELET VOLUME 9.4 fl (9.6-12.3); MONO # 0.6 10*3/uL (0.1-1.0); MONO % 6.6 % (3.0-9.0); NEUT # 5.6 10*3/uL (2.3-7.9); NEUT % 66.3 % (47.0-73.0); PLATELET COUNT AUTOMATED 316 10*3/uL (130-400); RED BLOOD COUNT 4.51 10*6/uL (4.50-5.90); RED CELL DISTRI WIDTH 16.3 % (0-14.5); WHITE BLOOD COUNT 8.5 10*3/uL (4.8-10.8)
[2022-12-31 12:36] LABS: ALKALINE PHOSPHATASE 118 U/L (46-116); BUN 13 mg/dl (9-23); CHLORIDE 102 mmol/L (98-107); POTASSIUM 4.1 mmol/L (3.4-5.1); T3 UPTAKE 22.9 % (22.4-36.7); THYROXINE (T4) TOTAL 10.9 ug/dl (4.5-10.9); TOTAL PROTEIN 7.5 gm/dL (6.0-8.0)
[2022-12-31 12:41] LABS: SGPT/ALT < 7 U/L (10-49)
[2023-01-01 20:07] LABS: HCV LOG10 4.064 (.); HEPATITIS C QNT 11600 IU/mL (.)
== END | disposition home or self-care (01) ==
LOC: LAB 10:18
PROVIDERS: ATTEND Family Medicine
DX: I10 Essential (primary) hypertension (principal); B18.2 Chronic viral hepatitis C

== ENCOUNTER 2023-06-12 15:23 | Emergency (ER) | payer OTHER ==
[~2023-06-12] VITALS: Ht 175.2 cm; Wt 68.0 kg
[2023-06-12 17:00] LABS: BASO % 0.2 % (0.0-1.0); EOS # 0.3 10*3/uL (0.0-0.4); HEMATOCRIT 40.4 % (42.0-52.0); LYMPH # 2.2 10*3/uL (1.3-4.4); LYMPH % 23.1 % (27.0-41.0); MEAN CELL VOLUME 81.5 fl (80.0-94.0); MEAN CORPUSCULAR HGB CONC 30.7 g/dl (33.0-37.0); MEAN PLATELET VOLUME 8.5 fl (9.6-12.3); MONO # 0.5 10*3/uL (0.1-1.0); MONO % 5.7 % (3.0-9.0); NEUT # 6.4 10*3/uL (2.3-7.9); NEUT % 67.7 % (47.0-73.0); PLATELET COUNT AUTOMATED 323 10*3/uL (130-400); RED BLOOD COUNT 4.96 10*6/uL (4.50-5.90); RED CELL DISTRI WIDTH 16.1 % (0-14.5); WHITE BLOOD COUNT 9.5 10*3/uL (4.8-10.8)
[2023-06-12 17:21] LABS: ALKALINE PHOSPHATASE 132 U/L (46-116); BUN 15 mg/dl (9-23); CHLORIDE 104 mmol/L (98-107); POTASSIUM 3.9 mmol/L (3.4-5.1)
[2023-06-12 17:25] LABS: SGPT/ALT < 7 U/L (5-49)
== END 2023-06-12 18:23 | disposition home or self-care (01) ==
LOC: ED 15:23
PROVIDERS: Emergency Medicine
DX: H53.8 Other visual disturbances (principal); R51.9 Headache, unspecified; R10.2 Pelvic and perineal pain; I10 Essential (primary) hypertension; J44.9 Chronic obstructive pulmonary disease, unspecified; K21.9 Gastro-esophageal reflux disease without esophagitis; Z98.890 Other specified postprocedural states; F14.90 Cocaine use, unspecified, uncomplicated; F17.200 Nicotine dependence, unspecified, uncomplicated

== ENCOUNTER 2023-07-12 15:47 | Emergency (ER) | payer OTHER ==
[~2023-07-12] VITALS: Ht 2004 cm; Wt 68.0 kg
[2023-07-12] MEDS ORDERED: SODIUM CHLORIDE 0.9% 1,000 ML IV ONE (16:15)
[2023-07-12] MEDS ORDERED: HYDROmorphONE Hydrochloride 0.5 MG/0.5 ML SYRINGE IV ONE (16:15)
[2023-07-12] MEDS ORDERED: Ondansetron Hydrochloride 4 MG/2 ML VIAL IV ONE (16:15)
[2023-07-12 16:30] LABS: BILIRUBIN Negative (Negative); BLOOD Negative (Negative); CLARITY Clear (Clear); COLOR Yellow (Yellow); GLUCOSE Negative (Negative); KETONE Negative (Negative); LEUKO ESTERASE Negative (Negative); NITRITE Negative (Negative); PH 7.5 (4.5-8.0); SPECIFIC GRAVITY 1.015 (1.001-1.030); UROBILINOGEN 0.2 E.U./dl (0.0-1.0)
[2023-07-12 16:38] LABS: BASO % 0.2 % (0.0-1.0); EOS # 0.1 10*3/uL (0.0-0.4); EOS % 0.6 % (1.0-4.0); HEMATOCRIT 38.9 % (42.0-52.0); LYMPH # 1.1 10*3/uL (1.3-4.4); LYMPH % 9.2 % (27.0-41.0); MEAN CELL VOLUME 80.4 fl (80.0-94.0); MEAN CORPUSCULAR HGB 25.4 pg (27.0-31.0); MEAN CORPUSCULAR HGB CONC 31.6 g/dl (33.0-37.0); MONO # 0.3 10*3/uL (0.1-1.0); MONO % 2.9 % (3.0-9.0); NEUT # 10.1 10*3/uL (2.3-7.9); NEUT % 86.9 % (47.0-73.0); PLATELET COUNT AUTOMATED 277 10*3/uL (130-400); RED BLOOD COUNT 4.84 10*6/uL (4.50-5.90); RED CELL DISTRI WIDTH 16.5 % (0-14.5); WHITE BLOOD COUNT 11.6 10*3/uL (4.8-10.8)
[2023-07-12 16:39] LABS: BACTERIA 1+
[2023-07-12 16:59] LABS: BUN 13 mg/dl (9-23); CHLORIDE 104 mmol/L (98-107); LIPASE 30 U/L (12-53); POTASSIUM 3.9 mmol/L (3.4-5.1)
[2023-07-12] MEDS ORDERED: Labetalol Hydrochloride 20 MG/4 ML SYR IV ONE ×2 (17:35→18:20)
[2023-07-12] MEDS ORDERED: NORVASC5 MG PO (19:03)
[2023-07-12] MEDS ORDERED: amLODIPine besylate 5 MG TAB PO ONE (19:10)
== END 2023-07-12 19:31 | disposition home or self-care (01) ==
LOC: ED 15:47
PROVIDERS: Nurse Practitioner Family
DX: I71.40 Abdominal aortic aneurysm, without rupture, unspecified (principal); I16.0 Hypertensive urgency; D72.829 Elevated white blood cell count, unspecified; I10 Essential (primary) hypertension; E87.1 Hypo-osmolality and hyponatremia; D64.9 Anemia, unspecified; J44.9 Chronic obstructive pulmonary disease, unspecified; K21.9 Gastro-esophageal reflux disease without esophagitis; R11.0 Nausea; F17.200 Nicotine dependence, unspecified, uncomplicated; F11.10 Opioid abuse, uncomplicated; F14.90 Cocaine use, unspecified, uncomplicated; Z98.890 Other specified postprocedural states